=== PATIENT | female | born 1950 | race Caucasian/White ===

== ENCOUNTER 2019-04-07 07:44 | Observation (INO) ==
--- NOTE | 2019-02-25 16:36 | PAT Medication Instructions ---
Medication Instructions Date of Service February 25, 2019 Home Medications Benefiber Clear SF (dextrin) 1 packet PO QAM calcium carbonate-vitamin D3 [Calcium 500 + D] 1 tab PO QAM cholecalciferol (vitamin D3) [Vitamin D3] 2,000 unit PO QAM docusate sodium [Stool Softener] 100 mg PO HS estradiol [Vagifem] 10 mcg VAGINAL UD simvastatin 20 mg PO Q2D triamterene-hydrochlorothiazid 1 cap PO QAM Continue as directed estradiol [Vagifem] 10 mcg VAGINAL UD DO NOT take the morning of surgery Benefiber Clear SF (dextrin) 1 packet PO QAM calcium carbonate-vitamin D3 [Calcium 500 + D] 1 tab PO QAM cholecalciferol (vitamin D3) [Vitamin D3] 2,000 unit PO QAM triamterene-hydrochlorothiazid 1 cap PO QAM Take morning of surgery With a small sip of water, OTHERWISE NOTHING TO EAT OR DRINK AFTER MIDNIGHT: simvastatin 20 mg PO Q2D (if scheduled) Take evening before surgery docusate sodium [Stool Softener] 100 mg PO HS Other Notes If you have any questions please call us at [phone] or [phone] or [phone] or [phone]
--- NOTE | 2019-02-26 13:17 | Anesthesiology Consultation ---
Date of Service February 26, 2019 Assessment & Plan (1) Encounter for pre-operative examination: S/P L TKA 12/17/2017 = SAB + regional block both x 1 attempt, no issues noted on record. Chart Review Chart Review: Acceptable Risk for Surgery and Patient seen in Pre Admission Testing Teaching & Discussion Instructed NPO after midnight before surgery, except medications with 15 cc of water. Medication instructions provided according to the PAT guidelines. History Surgery Operation Date: 04/07/19 10:30 Proposed Procedures p Left Total Knee Arthroplasty - Thomas Whitfield MD Height/Weight Height: 5 ft 1 in Weight: 74.5 kg Allergies Allergy/AdvReac Type Severity Reaction Status Date / Time atorvastatin AdvReac Mild MYALGIAS Verified 02/26/19 13:10 Medications Home Medications Medication Instructions Recorded Confirmed Last Taken Benefiber Clear SF (dextrin) 1 packet PO QAM 11/29/17 02/23/19 12/16/17 07:00 calcium carbonate-vitamin D3 1 tab PO QAM 11/29/17 02/23/19 12/15/17 07:00 [Calcium 500 + D] cholecalciferol (vitamin D3) 2,000 unit PO QAM 11/29/17 02/23/19 12/15/17 07:00 [Vitamin D3] docusate sodium [Stool Softener] 100 mg PO HS 11/29/17 02/23/19 12/16/17 21:00 estradiol [Vagifem] 10 mcg VAGINAL UD 11/29/17 02/23/19 12/16/17 08:00 simvastatin 20 mg PO Q2D 11/29/17 02/23/19 12/15/17 21:00 triamterene-hydrochlorothiazid 1 cap PO QAM 11/29/17 02/23/19 12/16/17 07:00 Past Medical History Medical History GERD (gastroesophageal reflux disease) CONTROLLED - AFTER SURGERY - NO PROBLEMS Hyperlipidemia Hypertension Left knee DJD Migraine Osteoarthritis Exercise / Class Metabolic Activity II 4-5 Yardwork/Stairs/Walk up hill (Denies CP or SOB with 1 FOS) Past Surgical History Surgical History Hiatal hernia REPAIRED History of adenoidectomy History of bilateral tubal ligation History of breast biopsy RIGHT AND LEFT History of cholecystectomy History of colonoscopy History of dilatation and curettage History of esophagogastroduodenoscopy (EGD) History of foot surgery LEFT FOOT W/HARDAWARE History of open reduction and internal fixation (ORIF) procedure LEFT FEMUR History of surgery LINX PROCEDURE (ESOPHAGEAL BANDING) History of tonsillectomy History of tooth extraction Pilonidal cyst REPAIRED Status post right knee replacement Past Anesthesia History No Hx of Anesthesia Complications and No Family Hx of Anesthesia Complications History of PONV History of PONV (with some general anesthesia surgeries) and Hx of Motion Sickness Social History Smoking Status: Never smoker Do You Dip or Chew Tobacco: No Hx Alcohol Use: No Alcohol type: wine (VERY RARE) alcohol intake frequency: holidays/special occasions only Hx Substance Use: No substance use type: does not use Review of Systems Pt denies any recent chest pain, shortness of breath, palpitations, cough, fever or URI. Physical Exam Vital Signs BP: 151/82 P: 75bpm SPO2: 98% RA T: 97.9 F R: 16 ENMT Mouth: + dental restorations (few crowns); no chipped teeth and no loose teeth Thyromental Distance: < 3.5 Finger Breadths (3) Mallampati Class: III Neck normal visual inspection; neck extension not limited Respiratory normal respiratory effort Auscultation: lungs clear to auscultation bilaterally Cardiovascular Rate/Rhythm: regular rate and regular rhythm Heart Sounds: no murmur Extremities: no edema Testing Laboratory Results 02/26/19 13:25 02/26/19 13:25 PT 9.8 Seconds (9.0-12.0) 02/26/19 13:25 INR 1.0 (0.9-1.1) 02/26/19 13:25 APTT 23.8 Seconds (21.0-31.0) 02/26/19 13:25 Blood Type A Positive 02/26/19 13:25 Antibody Screen NEGATIVE 02/26/19 13:25 Electrocardiogram Date: 02/26/19 Findings: + NSR @ (68 with 1st degree AV block) No significant change from EKG from 12/05/2017. Chest X-Ray Date: 02/26/19 Findings: + NAD
--- NOTE | 2019-02-26 14:26 | XRay Report ---
XR chest Pre-admission PA/Lat CLINICAL HISTORY: 68 years-old Female presenting with preoperative evaluation. TECHNIQUE: PA and lateral views of the chest were obtained. COMPARISON: 12/05/2017. FINDINGS: Atherosclerosis of the aortic arch. Cardiac silhouette normal in size. Lungs and pleural spaces clear . Osseous structures normal. Magnetic gastric banding at the gastroesophageal junction noted from slick or Esther type repair. Cholecystectomy clips noted. IMPRESSION: 1. No acute cardiopulmonary disease. ACT 112: Negative or not required by law. Electronically signed by: Sebastian Royal M.D. 02/26/2019 2:24 PM
[2019-02-26 15:17] LABS: Basophils # (auto) 0.03 K/uL (0-0.2); Basophils % (auto) 0.5 %; Eosinophils % (auto) 1.6 %; Hemoglobin 13.8 g/dL (12.0-16.0); Immature Granulocytes # (auto) 0.01 K/uL (0.00-0.02); Immature Granulocytes % (auto) 0.2 %; Mean Corpuscular Hemoglobin 31.4 pg (25-34); Mean Corpuscular Hgb Conc 34.5 g/dL (32-36); Mean Corpuscular Volume 91.1 fL (80-100); Monocytes # (auto) 0.59 K/uL (0.11-0.59); Monocytes % (auto) 9.3 %; Neutrophils # (auto) 3.54 K/uL (1.4-6.5); Neutrophils % (auto) 55.4 %; Platelet Count 321 K/uL (130-400); RDW Coefficient of Variation 12.5 % (11.5-14.5); RDW Standard Deviation 42.1 fL (36.4-46.3); Red Blood Count 4.39 M/uL (4.2-5.4); White Blood Count 6.37 K/uL (4.8-10.8)
[2019-02-26 15:24] LABS: BUN Creatinine Ratio 23.7 (10-20); Blood Urea Nitrogen 21 mg/dl (7-18); C Reactive Protein < 0.29 mg/dl (0-0.29); Calcium 9.4 mg/dl (8.5-10.1); Carbon Dioxide 30 mmol/L (21-32); Chloride 104 mmol/L (98-107); Est GFR (African American) 76.7; Est GFR (Non-African American) 66.2; Glucose 91 mg/dl (70-99); Potassium 4.1 mmol/L (3.5-5.1); Sodium 137 mmol/L (136-145)
[2019-02-26 15:26] LABS: Partial Thromboplastin Ratio 0.9; Partial Thromboplastin Time 23.8 Seconds (21.0-31.0); Prothrombin Time 9.8 Seconds (9.0-12.0)
--- NOTE | 2019-02-26 17:45 | Electrocardiogram Report ---
Test Reason : Blood Pressure : / mmHG Vent. Rate : 067 BPM Atrial Rate : 067 BPM P-R Int : 208 ms QRS Dur : 082 ms QT Int : 402 ms P-R-T Axes : 054 013 030 degrees QTc Int : 424 ms Normal sinus rhythm with 1st degree A-V block Normal ECG When compared with ECG of 05-DEC-2017 09:18, No significant change was found Confirmed by Raudel Ramirez ([id number]) on 02/26/2019 5:45:05 PM Referred By: Thomas Whitfield Confirmed By:Raudel Ramirez
--- NOTE | 2019-04-05 12:36 | History and Physical Report ---
DATE OF ADMISSION: 04/07/2019 CHIEF COMPLAINT: Persistent left knee pain and discomfort. HISTORY OF PRESENT ILLNESS: The patient is a 68-year-old female who is well known to me from previous right knee replacement as well as an IM nailing of the left osteoporotic femur fracture. She is doing well with her right knee. She is about 5 years out from the femur fracture. She continues to be limited by left knee pain and discomfort. She has got global pain in her knee. It is worse going up and down stairs. The more she walks and the more activities, more it hurts. She has become limited by this. Right knee has done quite well and she would like to have her left knee replaced. She does have some pain around the hip abductors from a previous IM nailing. PAST MEDICAL HISTORY: 1. Elevated cholesterol. 2. Obesity with BMI of 31. 3. Kidney stones. PAST SURGICAL HISTORY: 1. Left femur IM nailing done 09/14/2014. 2. Right knee replacement done 12/17/2017. 3. Cholecystectomy. 4. Tonsillectomy. 5. Lump removed from breast. 6. Tubal ligation. 7. Metatarsal screw placement. ALLERGIES: LIPITOR. CURRENT MEDICINES: Include: 1. Docusate sodium. 2. Estradiol vaginal cream. 3. Simvastatin. 4. Triamterene/hydrochlorothiazide. 5. Benefiber. 6. Vitamin D3. 7. Calcium. SOCIAL HISTORY: A 68-year-old female. She is from [place]. Does not smoke. No significant alcohol intake. FAMILY HISTORY: Noncontributory. REVIEW OF HISTORY: Negative for diabetes, neurologic problem, vascular problem, bleeding disorders. Denies any chest pain or shortness of breath. No history of DVT or PE. No known bleeding problems. PHYSICAL EXAMINATION: GENERAL: Shows a pleasant, middle-aged female. She looks to be in good health. HEENT: Benign. NECK: Supple, no lymphadenopathy. LUNGS: Clear to auscultation. HEART: Regular rate and rhythm. ABDOMEN: Soft, nontender, nondistended. EXTREMITIES: Grossly neurovascularly intact except as follows: Examination of the left knee reveals the patient walks with just a slight bit of a limp. She has got fairly neutral alignment to her knee. Small knee effusion. She has crepitance with knee motion. Range of motion 0-125. Good straight leg raise. No pain with hip motion. She is tender over the greater trochanteric bursa area. Examination of the right knee reveals well-healed incision. Range of motion is 0-125. Minimal to no swelling. No instability. X-RAYS: X-rays of the left knee reveal moderately advanced left knee DJD. She has got some moderate tibial femoral arthritis and more advanced patellofemoral disease. She has got an IM nail in place above. ASSESSMENT: A 68-year-old female status post a right knee replacement as well as left femoral IM nailing with left knee tricompartment degenerative joint disease. She has failed all conservative treatment. She did pretty well for the right knee and would like to have her left knee replaced. Once again, she has failed exhaustive conservative care. PLAN: We are going to proceed with a left total knee replacement. The risks and benefits of left knee replacement were explained to the patient including but not limited to DVT, PE, , infection, neurological injury, vascular injury, bleeding problem, pain, limited range of motion, stiffness, failure to relieve her symptoms, incomplete relief of symptoms, need for further surgery in future, fracture, leg length inequality, nerve palsy, etc. The patient understands and desires to proceed. Informed consent was obtained. We did have a lengthy discussion as the predictability of knee replacement with primarily patellofemoral arthritis, a little bit less predictable. She is fully aware of this and would like to proceed. She rely she may not get complete relief of her symptoms. Once again, she is well pleased with the right knee and would like to proceed with left knee replacement. As far as discharge plans, she is planning to be discharged home using [facility] home health program. We have imaged her leg with the CT scanner and developed custom blocks for this due to her IM nail and limited ability to instrument the canal for alignment purposes.
[~2019-04-07 07:44] MED LIST: ACETAMINOPHEN 500 MG TAB PO SCH; BUPIVACAINE 0.5 % 5 MG/1 ML PF 10ML VIAL ONE; BUPIVACAINE LIPOSOME/PF 266 MG, BUPIVACAINE/EPINEPHRINE 50 ML, SODIUM CHLORIDE 0.9% 30 ... INFIL SCH; CEFAZOLIN 2000MG 2,000 MG/15 ML SYR IV SCH; FAMOTIDINE 20 MG TAB PO SCH; GABAPENTIN 300 MG CAP PO SCH; LR 15ML/HR IV SCH; LR 60ML/HR IV SCH; METOCLOPRAMIDE HCL 10 MG TABLET PO SCH; OXYCODONE HCL 10 MG TABCR (OXYCONTIN) PO SCH; SCOPOLAMINE 1.5 MG TDSY TD SCH; TRANEXAMIC ACID 1,000 MG **IV Intra-op IV SCH
--- NOTE | 2019-04-07 08:45 | History & Physical Bridge Note ---
Date of Service April 07, 2019 History & Physical Bridge Note I have examined the patient, reviewed the History & Physical and in the interval since the performance of the History & Physical I have noted the following changes of clinical significance: no changes noted
[2019-04-07] MEDS ORDERED: fentaNYL citrate 100 MCG/2 ML VIAL ONE (09:05)
[2019-04-07] MEDS ORDERED: MIDAZOLAM HCL 1 MG/ML 2ML VIAL ONE ×2 (09:05→11:28)
[2019-04-07] MEDS ORDERED: ATROPINE SULFATE 0.1 MG/ML 10ML SYR IV PRN (09:59)
[2019-04-07] MEDS ORDERED: ONDANSETRON INJ 2 MG/ML 2 ML VIAL IV PRN (09:59)
[2019-04-07] MEDS ORDERED: fentaNYL citrate 100 MCG/2 ML VIAL IV PRN (09:59)
[2019-04-07] MEDS ORDERED: ePHEDrine sulfate 50 MG/ML AMP IV PRN (09:59)
[2019-04-07] MEDS ORDERED: SODIUM CHLORIDE 0.9% PF 50 ML VIAL ONE (11:08)
[2019-04-07] MEDS ORDERED: BUPIVACAINE LIPOSOME 1.3% 266 MG/20 ML VIAL ONE (11:08)
[2019-04-07] MEDS ORDERED: BUPIVACAINE/EPINEPHRINE 0.25% 1:200,000 30 ML VIAL ONE (11:08)
[2019-04-07] MEDS ORDERED: BACITRACIN INJ 50,000 UNIT VIAL ONE (11:09)
[2019-04-07] MEDS ORDERED: PROPOFOL IV EMULSION 10 MG/ML 20 ML VIAL IV ONE ×3 (11:48→12:19)
--- NOTE | 2019-04-07 13:06 | Post Operative Brief Note ---
PG Immediate Post Op with CF Date of Surgery April 07, 2019 Pre & Post Diagnosis Operation Date: 04/07/19 10:40 Pre-Op Diagnosis: LEFT KNEE DEGENERATIVE JOINT DISEASE Post-Op Diagnosis: LEFT KNEE DEGENERATIVE JOINT DISEASE I identified the patient and participated in the time-out.: Yes Procedure Operation Date: 04/07/19 10:40 Actual Procedures p Left Total Knee Arthroplasty(Left) - Thomas Whitfield MD Surgeon Thomas Whitfield MD Wireline Supervisor Joie, PAC Estimated Blood Loss 50 Findings Consistent with Post-Op Diagnosis Fluids 1500 cc Specimens Specimen Description: Permanent Specimen: A) Left Knee Bone and Tissue Drains Poole Catheter Anesthesia Type Spinal MAC Complications none Disposition Accompanied Patient To Recovery: No Disposition: Recovery Room
--- NOTE | 2019-04-07 13:50 | XRay Report ---
LEFT KNEE 2 VIEWS History: Left total knee arthroplasty. Degenerative arthritis. Postop. FINDINGS: The patient is status post a left total knee arthroplasty. The hardware is intact. No fract ure or dislocation. Skin randi are in place. IMPRESSION: Left total knee arthroplasty. No evidence for hardware complication. ACT 112: Negative or not required by law. Electronically signed by: Rober Chávez M.D. 04/07/2019 1:49 PM
--- NOTE | 2019-04-07 13:55 | Anesthesiology Progress Note ---
Date of Service April 07, 2019 Anesthesia Post Procedure Vital Signs Vital Signs: Temp Pulse Pulse Resp BP BP Pulse Ox 04/07/19 13:45 98.1 F 70 17 121/60 100 04/07/19 13:35 60 16 118/66 96 04/07/19 13:25 74 16 119/55 L 100 04/07/19 13:15 97.7 F 74 17 111/68 100 04/07/19 08:30 98.1 F 68 18 163/83 H 98 Transfer of Care Handoff Completed per policy Notes Mental Status: alert / awake / arousable and participated in evaluation Patient Amnestic to Procedure: Yes Nausea / Vomiting: adequately controlled Pain: adequately controlled Airway Patency, RR, SpO2: stable & adequate BP & HR: stable & adequate Hydration State: stable & adequate Neuraxial Anesthesia: was administered and sensory block is resolving Anesthetic Complications: no major complications apparent and Pt Satisfied with anesthetic care
--- NOTE | 2019-04-07 14:22 | Operative Report ---
Post Operative Report Pre & Post Diagnosis Operation Date: 04/07/19 10:40 Pre-Op Diagnosis: LEFT KNEE DEGENERATIVE JOINT DISEASE Post-Op Diagnosis: LEFT KNEE DEGENERATIVE JOINT DISEASE I identified the patient and participated in the time-out.: Yes Procedure Operation Date: 04/07/19 10:40 Actual Procedures p Left Total Knee Arthroplasty(Left) - Thomas hWitfield MD Surgeon Thomas Whitfield MD Process Tank Tender Joie, PAC Estimated Blood Loss 50 Findings Consistent with Post-Op Diagnosis Operative findings revealed advanced left knee DJD. Most severe disease was the patellofemoral compartment with eburnation of the trochlea as well as the patella. Her patella itself was quite thin. She had some grade 3 and grade 2 spotty changes of the medial compartment and less severe in the lateral compartment. She had a moderate-sized joint effusion. Fluids 1500 cc. Specimens Left knee sent for pathology. Drains None. Anesthesia Type Spinal MAC Complications none Disposition Disposition: Recovery Room Indications Patient is a 68-year-old female has had a long history of orthopedic issues. She sustained a osteoporotic fracture of her left femur treated with an IM nail last several years ago. She did not develop progressive knee arthritis right side worse than left and had a right knee replaced a little over a year ago and is done well from this. It was primarily patellofemoral arthritis. She been through extensive conservative treatment of left knee. She continues to be limited by left knee pain discomfort. She elected to a total knee arthroplasty. This is done primarily for patellofemoral arthritis with and less severe tibiofemoral arthritis. Because she had an IM nail in place, we had to use a CT guided method using personal for specific alignment/cutting blocks. Description of Procedure Operative implants consist of: 1. Biomet Vanguard size 57.5 left posterior by femoral component. 2. 59mm Biomet tibial tray. 3. 10 mm posterior bite polyethylene insert. 4. 25 x 8 all poly-patella. Patient was taken to the operating room identified and placed on the operating table supine position protectors were properly padded. IV antibiotic for provided by the anesthesia team. A Poole catheter was placed in sterile fashion. A left thigh tourniquet was then placed. A patient did receive a spinal anesthetic and abductor canal block in the holding area. The left lower extremity was then prepped and draped in usual sterile fashion. The left leg was elevated and exsanguinated with use of an Esmarch and turns placed at 3 mmHg. An anterior posterior left knee was then performed to longitudinal incision centered over the patella. Sharp dissection was cut through subcutaneous tissue down to over the extensor mechanism. A medial parapatellar arthrotomy incision was made. Some fat fat pad was removed from beneath and posterior to the patella tendon. Lateral patellofemoral ligament was released. Patella was subluxated laterally and the knee was flexed. The osteophytes were taken off distal femur. The ACL and PCL were then released from distal femur the tibia subluxated anteriorly. I elected to use the external tibial alignment jig. The external tibial alignment jig was then placed in the interface the tibia adjusted 14 mm medially. Proximal tibial cut was made to remove about 3 to 4 mm of bone from the most efficient aspect medial tibial plateau. I then sized this to a 59. I could fit the 63 on there but I would have had appropriate rotation with suspect the tibial tubercle and seemed that most of her problem was a patellofemoral issue I thought it important to get a good rotation of the tibial tray. Attention drawn the femur. The personalized the femoral cutting block was placed on the distal femur. The distal femoral holes were drilled with pins. The pins were left in place and the cutting block was removed. The distal femoral cutting block was then placed in the distal femur cut was made to take an additional 5 mm of bone off distal femur. Femur was then sized to a size 57.5. The AP cutting block was pinned parallel to the epicondylar axis which was 6 degrees of external rotation. The anterior cut, anterior chamfer, posterior cut, posterior chamfer cuts were made. Box cutting guide was placed in just slight lateral and the box cut was made. The knee was flexed. The remnants of the medial lateral menisci were excised. The osteophytes were taken off the posterior aspect of the femur. Trial femoral component was placed but the tibial tray was pinned in maximum external rotation and the drill and stem punch were used to create defect in proximal tip for the tibial tray. The knee was then trialed and the 10 mm insert fit most appropriately. Attention drawn the patella. The patella was cleaned of all soft tissues. Patella was quite thin. It measured a maximum 18 mm thickness and was cut down to 11. Size a size 25 patella. The locals were drilled for the 25 patella. Lateral osteophytes removed. Patella button was placed. Knee was taken through range of motion patella tracked nicely with no thumbs test. Attention drawn to placing the permanent components. All trial components removed. A single batch Palacos G cement was mixed. Biomet Vanguard size 57.5 left posterior by femoral component, size 59 tibial tray, 10 mm posterior box polyethylene insert, and a 25 x 8 all poly-patella were then cemented in place. Knee was brought under full extension total cement hardened. Final cement check was then performed. Pericapsular tissues were injected with total of 100 cc of combination of 20 cc of Exparel, 30 cc of normal saline, 50 cc of quarter percent Marcaine with epinephrine. Patient did receive 1 g of tranexamic acid. The tourniquet was let down for final tourniquet time of 56 minutes. Hemostasis assured use electrocautery. The wounds once again irrigated. The extensor macros then closed with combination 1 PDS suture #1 Vicryl suture in [id number] fashion. The extensor mechanism was checked found to be intact with subcutaneous tissue then closed with 2 Dexon suture in a buried interrupted fashion skin was closed skin randi. Leg was then cleaned dried and sterile dressing composed of Xeroform, 4 x 4's, sterile cast padding, Lonny bandage were applied. Patient then transferred to the recovery room in stable condition. Patient tolerated procedure well no complications. I attest to the content of the Intraoperative Record and any orders documented therein. Any exceptions are noted below.
[2019-04-07] MEDS ORDERED: MAGNESIUM HYDROXIDE SUSP 30 ML UDC PO PRN (14:24)
[2019-04-07] MEDS ORDERED: SIMVASTATIN 20 MG TAB PO SCH (14:24)
[2019-04-07] MEDS ORDERED: HYDROmorphone INJ 0.5 MG/0.5 ML SYR IV PRN (14:24)
[2019-04-07] MEDS ORDERED: METOCLOPRAMIDE HCL INJ 5 MG/ML 2 ML VIAL IV PRN (14:24)
[2019-04-07] MEDS ORDERED: NALOXONE HCL 0.4 MG/1 ML VIAL/CARP IV PRN (14:24)
[2019-04-07] MEDS ORDERED: ALUMINUM/MAGNESIUM SUSP 30 ML UDC PO PRN (14:24)
[2019-04-07] MEDS ORDERED: SODIUM CHLORIDE 0.9% 1000ML 1,000 ML IV SCH (14:24)
[2019-04-07] MEDS ORDERED: bisacodyL 10 MG SUPP PR PRN (14:24)
[2019-04-07] MEDS ORDERED: INFLUENZA VACCINE HIGH DOSE 65+ 0.5 ML SYR IM ONE (14:44)
[2019-04-07] MEDS ORDERED: INFLUENZA ADMINISTRATION CHARGE ONE (14:44)
[2019-04-07] MEDS: ONDANSETRON INJ 2 MG/ML 2 ML VIAL IV PRN (14:49)
[2019-04-07] MEDS: CHECK SCOPOLAMINE PATCH PLACEMENT SCH ×2 (16:16→23:22)
[2019-04-07] MEDS: ASCORBIC ACID 500 MG TAB PO SCH (16:18)
[2019-04-07] MEDS: FERROUS GLUCONATE 324 MG TAB PO SCH (16:18)
[2019-04-07] MEDS: TRAMADOL HCL 50 MG TABLET PO PRN (16:39)
[2019-04-07] MEDS: KETOROLAC TROMETHAMINE 15 MG/ML VIAL IV SCH ×2 (18:35→23:25)
[2019-04-07] MEDS ORDERED: TRANEXAMIC ACID / 0.7% NACL 1,000 MG/100 ML BAG IV SCH (19:00)
[2019-04-07] MEDS: CEFAZOLIN 1000MG 1,000 MG/7.5 ML SYR IV SCH (19:43)
[2019-04-07] MEDS ORDERED: DOCUSATE SODIUM 100 MG CAP PO SCH (21:00)
[2019-04-07] MEDS: ACETAMINOPHEN 500 MG TAB PO SCH (21:31)
[2019-04-07] MEDS: SENNA 8.6 MG TAB PO SCH (21:31)
[2019-04-07] MEDS: DOCUSATE SODIUM 100 MG CAP PO SCH (21:32)
[2019-04-07] MEDS: ASPIRIN 81 MG ECTAB PO SCH (21:32)
[2019-04-08] MEDS: CEFAZOLIN 1000MG 1,000 MG/7.5 ML SYR IV SCH (04:29)
[2019-04-08] MEDS: ACETAMINOPHEN 500 MG TAB PO SCH ×3 (04:29→21:42)
[2019-04-08] MEDS: KETOROLAC TROMETHAMINE 15 MG/ML VIAL IV SCH ×3 (04:30→17:54)
[2019-04-08 07:17] LABS: Hematocrit (blood only) 34.3 % (37-47); Hemoglobin 11.6 g/dL (12.0-16.0); Mean Corpuscular Hemoglobin 30.5 pg (25-34); Mean Corpuscular Hgb Conc 33.8 g/dL (32-36); Mean Corpuscular Volume 90.3 fL (80-100); Mean Platelet Volume 9.7 fL (7.4-10.4); Platelet Count 240 K/uL (130-400); RDW Coefficient of Variation 12.5 % (11.5-14.5); White Blood Count 6.21 K/uL (4.8-10.8)
[2019-04-08 07:49] LABS: Calcium 8.3 mg/dl (8.5-10.1); Creatinine Clr Calc Pharmacy 60.5 ml/min; Est GFR (African American) 84.6; Potassium 3.5 mmol/L (3.5-5.1)
--- NOTE | 2019-04-08 08:06 | Anesthesiology Progress Note ---
Date of Service April 08, 2019 Anesthesia Post Procedure Vital Signs Vital Signs: Temp Pulse Pulse Resp BP BP Pulse Ox 04/08/19 07:57 37.0 C 70 19 114/74 96 04/08/19 03:01 36.7 C 64 16 119/80 99 04/07/19 23:23 36.7 C 64 16 109/68 94 04/07/19 19:00 36.6 C 66 16 115/69 99 04/07/19 17:23 36.6 C 48 L 16 124/73 98 04/07/19 16:08 36.5 C 76 16 147/76 H 99 04/07/19 15:13 36.5 C 65 17 146/80 H 98 04/07/19 14:37 60 18 143/69 H 97 04/07/19 14:10 36.3 C L 66 16 119/76 97 04/07/19 13:55 36.7 C 60 17 116/65 95 04/07/19 13:45 36.7 C 70 17 121/60 100 04/07/19 13:35 60 16 118/66 96 04/07/19 13:25 74 16 119/55 L 100 04/07/19 13:15 36.5 C 74 17 111/68 100 04/07/19 08:30 36.7 C 68 18 163/83 H 98 Pain Intensity Left Knee: Pain Intensity: 1 Notes Mental Status: alert / awake / arousable and participated in evaluation Patient Amnestic to Procedure: Yes Nausea / Vomiting: adequately controlled Pain: adequately controlled Airway Patency, RR, SpO2: stable & adequate BP & HR: stable & adequate Hydration State: stable & adequate Neuraxial Anesthesia: was administered and sensory block resolved Anesthetic Complications: no major complications apparent and Pt Satisfied with anesthetic care
[2019-04-08] MEDS: CHECK SCOPOLAMINE PATCH PLACEMENT SCH ×2 (09:07→15:37)
[2019-04-08] MEDS: ASCORBIC ACID 500 MG TAB PO SCH ×2 (09:08→17:54)
[2019-04-08] MEDS: DOCUSATE SODIUM 100 MG CAP PO SCH ×2 (09:08→21:41)
[2019-04-08] MEDS: CALCIUM 600MG + VIT D 400 IU TAB PO SCH (09:08)
[2019-04-08] MEDS: FERROUS GLUCONATE 324 MG TAB PO SCH ×2 (09:08→17:54)
[2019-04-08] MEDS: TRIAMTERENE/HCTZ 37.5/25MG CAP PO SCH (09:09)
[2019-04-08] MEDS: ASPIRIN 81 MG ECTAB PO SCH ×2 (09:10→21:42)
[2019-04-08] MEDS: CHOLECALCIFEROL 1,000 UNITS 25 MCG TAB PO SCH (09:10)
[2019-04-08] MEDS: MULTIVITAMIN TAB PO SCH (09:10)
[2019-04-08] MEDS: TRAMADOL HCL 50 MG TABLET PO PRN (09:12)
--- NOTE | 2019-04-08 09:31 | Progress Note ---
DATE: 04/08/2019 SUBJECTIVE: A 68-year-old white female postop day 1 from a left knee replacement. She is doing well. Pain is controlled. Rates her pain at 1/10. No chest pain or shortness of breath. Not feeling dizzy or lightheaded. OBJECTIVE: VITAL SIGNS: Temperature 37.0. Vital signs stable. GENERAL: Shows a pleasant, middle-aged female. She is sitting up in her bedside chair, looks comfortable. LUNGS: Clear to auscultation. HEART: Regular rate and rhythm. ABDOMEN: Soft, nontender, nondistended. EXTREMITIES: Grossly neurovascularly intact except as follows: Examination of the left leg reveals the dressing to be clean, dry and intact. Leg is well aligned. She can dorsiflex and plantarflex her foot appropriately. She is neurologically intact. LABORATORY DATA: Hemoglobin is 11.6. Hematocrit 34.3. Electrolytes are stable. ASSESSMENT: A 68-year-old white female postop day 1 from left knee replacement, doing quite well. Pain is controlled. She is neurologically intact. PLAN: 1. DVT prophylaxis including thigh-high TEDs, SCDs, and aspirin twice a day. 2. PT/OT. Weight bear as tolerated. Left total knee protocol. 3. Pain control, doing pretty well with current pain regimen. 4. Disposition: She is planning to be discharged to home with some home health once adequately recovered and medically stable.
[2019-04-08] MEDS: ONDANSETRON INJ 2 MG/ML 2 ML VIAL IV PRN (12:07)
[2019-04-08] MEDS: SENNA 8.6 MG TAB PO SCH (21:42)
[2019-04-09] MEDS: CHECK SCOPOLAMINE PATCH PLACEMENT SCH ×2 (00:21→07:37)
[2019-04-09] MEDS: KETOROLAC TROMETHAMINE 15 MG/ML VIAL IV SCH ×3 (00:21→12:44)
[2019-04-09] MEDS: ACETAMINOPHEN 500 MG TAB PO SCH (06:21)
[2019-04-09] MEDS: CALCIUM 600MG + VIT D 400 IU TAB PO SCH (07:32)
[2019-04-09] MEDS: FERROUS GLUCONATE 324 MG TAB PO SCH (07:32)
[2019-04-09] MEDS: ASCORBIC ACID 500 MG TAB PO SCH (07:32)
[2019-04-09] MEDS: MULTIVITAMIN TAB PO SCH (07:33)
[2019-04-09] MEDS: TRIAMTERENE/HCTZ 37.5/25MG CAP PO SCH (07:33)
[2019-04-09] MEDS: DOCUSATE SODIUM 100 MG CAP PO SCH (07:33)
[2019-04-09] MEDS: CHOLECALCIFEROL 1,000 UNITS 25 MCG TAB PO SCH (07:33)
[2019-04-09] MEDS: ASPIRIN 81 MG ECTAB PO SCH (07:33)
[2019-04-09] MEDS: TRAMADOL HCL 50 MG TABLET PO PRN (07:35)
--- NOTE | 2019-04-09 15:29 | Progress Note ---
DATE: 04/09/2019 SUBJECTIVE: 68-year-old white female postop day 2 from left knee replacement. She is doing pretty well. Having a little bit more pain than she had yesterday. She is doing okay with the pain pills. Denies any chest pain or shortness of breath. Not feeling dizzy or lightheaded. She is anxious to get home. OBJECTIVE: VITAL SIGNS: Temperature 36.9. Vital signs stable. GENERAL: Shows a pleasant, middle-aged female. She is sitting up at her bedside chair and looks pretty comfortable. EXTREMITIES: Examination of the left leg reveals the dressing to be clean, dry and intact. Leg is well aligned. She can dorsiflex and plantarflex her foot appropriately. She is neurologically intact. ASSESSMENT: 68-year-old white female postop day 2 from left knee replacement, doing pretty well. Pain is pretty well controlled. She is neurologically intact. PLAN: 1. DVT prophylaxis including thigh-high TEDS, SCDs, and aspirin twice a day. 2. PT/OT. Weight bear as tolerated. Left total knee protocol. 3. Pain control, doing pretty well with current pain regimen. 4. Disposition: Plan to discharge to home with some home health today.
--- NOTE | 2019-04-10 15:43 | Discharge Summary ---
ADMITTING PHYSICIAN AND SURGEON: Dr. Thomas Whitfield. ADMITTING DIAGNOSIS: Left knee degenerative joint disease. SURGERY PERFORMED: Left total knee arthroplasty. SECONDARY DIAGNOSES: Elevated cholesterol, obesity, kidney stones. CONSULTS: None obtained. HISTORY AND PHYSICAL EXAMINATION: Well documented in the patient's chart. HOSPITAL COURSE: The patient was admitted on 04/07/2019 underwent total knee arthroplasty, tolerated the procedure well. There were no complications. She was transferred to the PACU postoperatively and later to the orthopedic floor for further care. She was given Ancef for antibiotic prophylaxis, ARLENE stockings, SCDs and aspirin for DVT prophylaxis. Hemoglobin, hematocrit and vital signs were monitored during her hospital stay and remained stable, did not require any blood transfusions. There were no complications. By postoperative day 2 she was tolerating a regular diet, pain was controlled with oral pain medicine. She was participating in physical therapy. Postop day 2 she was discharged home, set up with home health services. She was given printed discharge instructions as well as new prescriptions for extra strength Tylenol, aspirin and tramadol. Continue her home medicines. Continue physical therapy, weightbearing as tolerated, ARLENE stockings. Follow up approximately 2 weeks postop or sooner if there are any problems or concerns.
== END 2019-04-09 12:50 | disposition home health service (06) ==
LOC: 3E 07:44 → ASU 07:44